=== PATIENT | female | born 1970 | race Caucasian/White ===

== ENCOUNTER 2017-08-08 19:29 | Emergency (ER) | payer OTHER ==
[~2017-08-08] VITALS: Ht 167.6 cm; Wt 75.0 kg
[~2017-08-08 19:29] MED LIST: CIPROFLOXACN500 MG PO; NO HOME MEDS; TORADOL OR
[2017-08-08] MEDS ORDERED: TAM75CAP PO (20:25)
[2017-08-08 20:45] VITALS: BP 119/83
== END 2017-08-08 20:45 | disposition home or self-care (01) | DRG 153 ==
LOC: ED 19:29
DX: J11.1 Influenza due to unidentified influenza virus with other respiratory manifestations (principal); R09.89 Other specified symptoms and signs involving the circulatory and respiratory systems; R50.9 Fever, unspecified; R52 Pain, unspecified

== ENCOUNTER 2017-11-17 07:00 | Emergency (ER) | payer OTHER ==
[~2017-11-17] VITALS: Ht 167.6 cm; Wt 78.0 kg
[~2017-11-17 07:00] MED LIST changes: +TAM75CAP PO
[2017-11-17 10:04] VITALS: BP 127/76
== END 2017-11-17 10:20 | disposition home or self-care (01) | DRG 605 ==
LOC: ED 07:00
DX: S70.12XA Contusion of left thigh, initial encounter (principal); M79.662 Pain in left lower leg; Z91.19 Patient's noncompliance with other medical treatment and regimen; X58.XXXA Exposure to other specified factors, initial encounter; Z98.890 Other specified postprocedural states; R22.42 Localized swelling, mass and lump, left lower limb

== ENCOUNTER 2018-05-06 21:21 | Emergency (ER) | payer OTHER ==
[~2018-05-06] VITALS: Ht 167.6 cm; Wt 82.0 kg
[2018-05-06] MEDS ORDERED: HORMONE REPLACEMENT PO (21:47)
[2018-05-06 22:02] LABS: HEMATOCRIT 39.9 % (37.0-47.0); HEMOGLOBIN 13.4 g/dl (12.0-16.0); IMMATURE GRANULOCYTES 0.7 % (0.0-5.0); MEAN CELL VOLUME 93.2 fL CALC (80.0-100.0); MEAN CORPUSCULAR HGB 31.3 pG CALC (26.0-32.0); MEAN CORPUSCULAR HGB CONC 33.6 g/L CALC (32.0-36.0); NEUT# 4.55 thou/uL (2.00-7.15); RED BLOOD COUNT 4.28 mill/uL (4.20-5.60); RED CELL DISTRI WIDTH 13.2 % (11.5-15.5)
[2018-05-06 22:12] LABS: ALBUMIN 3.9 g/dL (3.2-5.0); ALKALINE PHOSPHATASE 52 u/l (38-126); BILIRUBIN, TOTAL 0.2 mg/dL (0.0-1.4); BUN 16 mg/dL (7-17); BUN/CREATININE RATIO 18 (12-20 (CALC)); CARBON DIOXIDE 26 mmol/l (22-30); CHLORIDE 107 mmol/l (95-108); CREATININE 0.9 mg/dL (0.5-1.0); GFR > 60 ML/MIN (>=60 (CALC)); GFR FOR AFR.AMER. > 60 ML/MIN (>=60 (CALC)); POTASSIUM 3.6 mmol/l (3.5-5.1); SGOT/AST 23 u/l (14-36); TOTAL PROTEIN 7.2 g/dL (6.3-8.2)
[2018-05-06 22:13] LABS: ANION GAP 14 (6-22 (CALC)); SODIUM 143 mmol/l (137-146)
[2018-05-06 22:24] LABS: MYOGLOBIN 20 ng/mL (0 - 62)
[2018-05-06 22:52] VITALS: BP 156/87
== END 2018-05-06 23:00 | disposition home or self-care (01) | DRG 310 ==
LOC: ED 21:21
PROVIDERS: Emergency Medicine
DX: R00.2 Palpitations (principal); Z82.49 Family history of ischemic heart disease and other diseases of the circulatory system